=== PATIENT | female | born 1985 | race Caucasian/White ===

== ENCOUNTER 2016-10-17 09:07 | Emergency (ER) | payer MEDICAID ==
[~2016-10-17 09:07] MED LIST: CYCL1TAB29 PO; IBUP800T23 PO; MULT1TAB46
[2016-10-17 09:09] VITALS: BP 127/87; PULSE 84; RESP 16; TEMP 98; O2SAT 100
--- NOTE | 2016-10-17 09:36 | PD ---
HPI Chief Complaint: Wound/Suture/Staple Re-Check Time Seen by Provider: 09:31 Travel History International Travel<30 days: No Contact w/Intl Traveler<30days: No Traveled to known affect area: No History of Present Illness HPI 30-year-old female presents to the emergency room for suture removal. Patient reportedly had 2 sutures placed 7 days ago in her left elbow. States she has been changing her Band-Aid daily and is not sure if the sutures came out with the dressing change. Patient denies pain or drainage. Denies signs of infection. History Social History Alcohol Use: Yes (OCC) Tobacco Use: Yes (10/17 PPD) Allergies-Medications (Allergen,Severity, Reaction): Coded Allergies: No Known Allergies (Verified , 10/17/16) Reported Meds & Prescriptions Reported Meds & Active Scripts Active Flexeril (Cyclobenzaprine HCl) 10 Mg Tab 10 Mg PO TID PRN 7 Days Ibuprofen 800 Mg Tab 800 Mg PO Q6HR PRN Reported Multi Vitamin Daily (Multiple Vitamin) 1 Tab Tab Review of Systems Except as stated in HPI: all other systems reviewed are Neg Physical Exam Narrative GENERAL: Well-nourished, well-developed female in no acute distress. Afebrile. Ambulatory. SKIN: Warm and dry. There is a well-healed, noninfected appearing wound to the left olecranon. It is nontender. No appreciable sutures intact. HEAD: Normocephalic. EYES: No scleral icterus. No injection or drainage. NECK: Supple, trachea midline. No JVD or lymphadenopathy. Data Data Last Documented VS Vital Signs Date Time Temp Pulse Resp B/P Pulse Ox O2 Delivery O2 Flow Rate FiO2 10/17/16 09:09 98.0 84 16 127/87 100 MDM Medical Screen Exam Complete: Yes Emergency Medical Condition: No Differential Diagnosis Suture removal Narrative Course 30-year-old female presents to the emergency room for suture removal. Patient had 2 sutures placed 7 days ago. Physical exam reveals no visible or palpable sutures. The wound is intact without evidence of infection. Patient believes she may have pulled the sutures out while doing the dressing change. This is likely true. No urgent or emergent medical conditions at this time. A medical screening exam was performed: At the time of evaluation the presenting medical condition was determined not to be of an emergent nature. The patient was given the option of receiving additional care, but declined. Patient was given options for additional community resources from which to obtain care. The Patient Has Been advised to seek medical attention for their presenting complaint. The patient has been advised to return to the ER at any time if an emergent condition develops. Primary Impression: Encounter for medical screening examination Disposition: 01 DISCHARGE HOME Condition: Stable Katty Darden Oct 17, 2016 09:36
== END 2016-10-17 09:38 | disposition left against medical advice (07) ==
LOC: NEPB 09:07
DX: Z48.02 Encounter for removal of sutures (principal); F17.210 Nicotine dependence, cigarettes, uncomplicated
CPT/HCPCS: 99281